=== PATIENT | female | born 1965 ===

== ENCOUNTER 2021-06-24 10:52 | Outpatient (CLI) | payer OTHER | END 2021-06-24 15:05 | disposition home or self-care (01) | LOC: SONOGRAMA 10:52 | PROVIDERS: ATTEND Pathology Anatomic Pathology & Clinical Pathology | DX: E04.2 Nontoxic multinodular goiter (principal) ==

== ENCOUNTER 2022-03-18 08:57 | Outpatient (CLI) | payer OTHER | END 2022-03-18 09:13 | disposition home or self-care (01) | LOC: RX STUDY 08:57 | PROVIDERS: ATTEND Internal Medicine Gastroenterology | DX: K25.3 Acute gastric ulcer without hemorrhage or perforation (principal); K21.00 Gastro-esophageal reflux disease with esophagitis, without bleeding; K44.9 Diaphragmatic hernia without obstruction or gangrene; E11.01 Type 2 diabetes mellitus with hyperosmolarity with coma ==